=== PATIENT | female | born 1970 | race Caucasian/White ===

== ENCOUNTER 2018-04-10 07:04 | Observation (INO) ==
--- NOTE | 2018-03-21 09:46 | Anesthesiology Consultation ---
Date of Service March 21, 2018 Assessment & Plan (1) Encounter for pre-operative examination: Plan: CHECK TEST AM DOS Chart Review Chart Review: Acceptable Risk for Surgery and Patient seen in Pre Admission Testing Teaching & Discussion Instructed NPO after midnight before surgery, except medications with 15 cc of water. Medication instructions provided according to the PAT guidelines. History Surgery Operation Date: 04/10/18 08:50 Proposed Procedures p Laparoscopic Cholecystectomy; - J Carlos Garcias MD, FACS s Laparoscopic Appendectomy - J Carlos Garcias MD, FACS Height/Weight Height: 5 ft 5 in Weight: 61.8 kg Allergies Allergy/AdvReac Type Severity Reaction Status Date / Time No Known Drug Allergies Allergy Unknown . Verified 03/20/18 12:14 Medications Home Medications Medication Instructions Recorded Confirmed Last Taken alprazolam 0.25 mg PO BID PRN 03/20/18 03/20/18 Unknown ascorbic acid (vitamin C) [Vitamin 1 g PO DAILY PRN 03/20/18 03/20/18 Unknown C] biotin 1 mg PO DAILY PRN 03/20/18 03/20/18 Unknown cetirizine [Zyrtec] 10 mg PO QAM 03/20/18 03/20/18 Unknown diphenhydramine HCl [Benadryl] 25 mg PO HS PRN 03/20/18 03/20/18 Unknown docusate sodium [Stool Softener] 100 mg PO DAILY PRN 03/20/18 03/20/18 Unknown ginkgo biloba 40 mg PO DAILY PRN 03/20/18 03/20/18 Unknown indapamide 1.25 mg PO QAM 03/20/18 03/20/18 Unknown iron 18 mg PO DAILY PRN 03/20/18 03/20/18 Unknown lactobacillus combination no.4 3,000 mmu cells PO QAM 03/20/18 03/20/18 Unknown [Probiotic] pantoprazole 40 mg PO QAM 03/20/18 03/20/18 Unknown ranitidine HCl 150 mg PO HS PRN 03/20/18 03/20/18 Unknown vitamin B complex 1 cap PO DAILY PRN 03/20/18 03/20/18 Unknown Past Medical History Medical History Anxiety Chronic back pain HX OF CERVICAL THORACID BULGING DISC, PT HAS CHRONIC PAIN, DOES NOT IMPACT ADL' S. GERD (gastroesophageal reflux disease) Hypertension Kidney stones Past Surgical History Surgical History History of dilatation and curettage AB History of esophagogastroduodenoscopy (EGD) History of wisdom tooth extraction Past Anesthesia History No Hx of Anesthesia Complications and No Family Hx of Anesthesia Complications History of PONV No Motion Sickness Screening History of Motion Sickness: No Social History Smoking Status: Current every day smoker tobacco type: cigarettes Smoking cigarettes per day: HX OF 1PPD, X10 +YEARS Do You Dip or Chew Tobacco: No Hx Alcohol Use: Yes Alcohol type: other alcohol intake frequency: holidays/special occasions only Alcohol Intake Frequency Comment: OCC. SOCIAL DRINK Hx Substance Use: No substance use type: does not use Exercise / Class Metabolic Activity II 4-5 Yardwork/Stairs/Walk up hill (no CP or SOB with stairs, pt is EMT, active at work) Review of Systems Pt denies any recent chest pain, shortness of breath, cough, fever or URI. + palpitations, no assc chest pain. Occ epigastric pain 2/2 gallbladder/GERD, relieved with antacid. Physical Exam Vital Signs BP: 123/82 P: 81 SPO2: 99% RA T: 98.4 F R: 16 ENMT Mouth: + chipped teeth (back R molar); no loose teeth Thyromental Distance: < 3.5 Finger Breadths (3) Mallampati Class: II Neck normal visual inspection; neck extension not limited Respiratory normal respiratory effort Auscultation: lungs clear to auscultation bilaterally Cardiovascular Rate/Rhythm: regular rate and regular rhythm Heart Sounds: no murmur Vessels: no carotid bruit Testing Electrocardiogram Date: 03/21/18 Findings: + NSR @ (75) Echocardiogram Date: 01/29/16 EF: 60-65% Normal left ventricular size and systolic function. No regional wall motion abnormalities. No left ventricular hypertrophy. No significant diastolic dysfunction. No significant valvular abnormalities. Technically difficult study , enhanced with IV Definity. Stress Test Date: 01/27/18 Type: exercise Negative stress echo for ischemia at 88% MPHR. Negative exercise ECG for ischemia at 88% MPHR. Appropriate blood pressure response to exercise. No chest pain. No arrhythmia. Fair exercise tolerance. Technically difficult study, enhanced with IV Definity. Laboratory Results 03/21/18 09:58 03/21/18 09:58
--- NOTE | 2018-03-21 09:55 | PAT Medication Instructions ---
Medication Instructions Date of Service March 21, 2018 Home Medications alprazolam 0.25 mg PO BID PRN ascorbic acid (vitamin C) 1 g PO DAILY PRN biotin 1 mg PO DAILY PRN cetirizine [Zyrtec] 10 mg PO QAM diphenhydramine HCl [Benadryl] 25 mg PO HS PRN docusate sodium [Stool Softener] 100 mg PO DAILY PRN ginkgo biloba 40 mg PO DAILY PRN indapamide 1.25 mg PO QAM iron 18 mg PO DAILY PRN lactobacillus [Probiotic] 3,000 mmu cells PO QAM pantoprazole 40 mg PO QAM ranitidine HCl 150 mg PO HS PRN vitamin B complex 1 cap PO DAILY PRN STOP taking 2 weeks before surgery ginkgo biloba 40 mg PO DAILY PRN DO NOT take the morning of surgery ascorbic acid (vitamin C) 1 g PO DAILY PRN biotin 1 mg PO DAILY PRN cetirizine [Zyrtec] 10 mg PO QAM docusate sodium [Stool Softener] 100 mg PO DAILY PRN indapamide 1.25 mg PO QAM iron 18 mg PO DAILY PRN lactobacillus [Probiotic] 3,000 mmu cells PO QAM vitamin B complex 1 cap PO DAILY PRN Take morning of surgery With a small sip of water, OTHERWISE NOTHING TO EAT OR DRINK AFTER MIDNIGHT: alprazolam 0.25 mg PO BID PRN (if needed) pantoprazole 40 mg PO QAM Take evening before surgery alprazolam 0.25 mg PO BID PRN (if needed) diphenhydramine HCl [Benadryl] 25 mg PO HS PRN (if needed) docusate sodium [Stool Softener] 100 mg PO DAILY PRN (if needed) ranitidine HCl 150 mg PO HS PRN (if needed) Other Notes If you have any questions please call us at [phone] or [phone] or [phone] or [phone]
[2018-03-21 10:57] LABS: Basophils # (auto) 0.03 K/uL (0-0.2); Basophils % (auto) 0.5 %; Eosinophils % (auto) 3.4 %; Hemoglobin 14.1 g/dL (12.0-16.0); Immature Granulocytes # (auto) 0.01 K/uL (0.00-0.02); Immature Granulocytes % (auto) 0.2 %; Lymphocytes # (auto) 2.52 K/uL (1.2-3.4); Lymphocytes % (auto) 42.2 %; Mean Corpuscular Hgb Conc 33.6 g/dL (32-36); Mean Corpuscular Volume 98.4 fL (80-100); Mean Platelet Volume 9.6 fL (7.4-10.4); Monocytes # (auto) 0.59 K/uL (0.11-0.59); Monocytes % (auto) 9.9 %; Neutrophils # (auto) 2.62 K/uL (1.4-6.5); Neutrophils % (auto) 43.8 %; Platelet Count 295 K/uL (130-400); RDW Coefficient of Variation 13.8 % (11.5-14.5); RDW Standard Deviation 48.6 fL (36.4-46.3); Red Blood Count 4.27 M/uL (4.2-5.4); White Blood Count 5.97 K/uL (4.8-10.8)
[2018-03-21 11:15] LABS: Alanine Aminotransferase 21 U/L (12-78); Albumin Level 3.6 gm/dl (3.4-5.0); Aspartate Aminotransferase 14 U/L (15-37); Bilirubin Direct < 0.1 mg/dl (0-0.2); Blood Urea Nitrogen 10 mg/dl (7-18); Calcium 8.9 mg/dl (8.5-10.1); Carbon Dioxide 29 mmol/L (21-32); Chloride 104 mmol/L (98-107); Creatinine Clr Calc Pharmacy 75.7 ml/min; Est GFR (African American) 99.6; Glucose 105 mg/dl (70-99); Potassium 3.6 mmol/L (3.5-5.1); Sodium 139 mmol/L (136-145)
[2018-03-21 11:18] LABS: Alkaline Phosphatase 65 U/L (45-117); Bilirubin,Total 0.3 mg/dl (0.1-1)
[~2018-04-10 07:04] MED LIST: LR 15ML/HR IV SCH; cefOXitin 2,000 MG in DEXTROSE 5% 50 ML IV SCH; cefTRIAXone SODIUM 2,000 MG in DEXTROSE 5% 50 ML IV SCH
[2018-04-10] MEDS ORDERED: PROMETHAZINE HCL 12.5 MG in SODIUM CHLORIDE 0.9% 50 ML IV PRN ×2 (08:06→11:09)
[2018-04-10] MEDS ORDERED: ONDANSETRON INJ 2 MG/ML 2 ML VIAL IV PRN ×2 (08:06→11:09)
[2018-04-10] MEDS ORDERED: FLUMAZENIL 0.1 MG/1 ML 10 ML VIAL IV PRN (08:06)
[2018-04-10] MEDS ORDERED: LABETALOL HCL IV 5 MG/ML 20ML IV PRN (08:06)
[2018-04-10] MEDS ORDERED: ePHEDrine sulfate 50 MG/ML AMP IV PRN (08:06)
[2018-04-10] MEDS ORDERED: ATROPINE SULFATE 0.1 MG/ML 10ML SYR IV PRN (08:06)
[2018-04-10] MEDS ORDERED: NALOXONE HCL 0.4 MG/1 ML VIAL/CARP IV PRN (08:06)
--- NOTE | 2018-04-10 08:14 | History & Physical Bridge Note ---
Date of Service April 10, 2018 History & Physical Bridge Note I have examined the patient, reviewed the History & Physical and in the interval since the performance of the History & Physical I have noted the following changes of clinical significance: no changes noted
[2018-04-10] MEDS ORDERED: fentaNYL citrate 100 MCG/2 ML VIAL ONE (08:22)
[2018-04-10] MEDS ORDERED: LIDOCAINE HCL 2% 2 ML VIAL/AMP(20MG/ML) INFIL ONE (08:22)
[2018-04-10] MEDS ORDERED: PROPOFOL IV EMULSION 10 MG/ML 20 ML VIAL IV ONE (08:22)
[2018-04-10] MEDS ORDERED: MIDAZOLAM HCL 1 MG/ML 2ML VIAL ONE (08:22)
[2018-04-10] MEDS ORDERED: ROCURONIUM BROMIDE 10 MG/ML 5 ML VIAL ONE (08:22)
[2018-04-10] MEDS ORDERED: BUPIVACAINE 0.5 % 5 MG/1 ML MPF 30ML VIAL ONE (08:36)
[2018-04-10] MEDS ORDERED: ONDANSETRON INJ 2 MG/ML 2 ML VIAL ONE (09:45)
[2018-04-10] MEDS ORDERED: NEOSTIGMINE METHYLSULFATE 5 MG/5 ML SYR ONE (09:45)
[2018-04-10] MEDS ORDERED: GLYCOPYRROLATE 0.2 MG/ML VIAL ONE (09:45)
[2018-04-10] MEDS ORDERED: DEXAMETHASONE SOD INJ 4 MG/ML VIAL ONE (09:45)
--- NOTE | 2018-04-10 09:47 | Operative Report ---
Post Operative Report Pre & Post Diagnosis Operation Date: 04/10/18 08:50 Pre-Op Diagnosis: Cholelithiasis; Disorder of Appendix Post-Op Diagnosis: Cholelithiasis; Disorder of Appendix same with chronic cholecystitis and adhesions Procedure Operation Date: 04/10/18 08:50 Actual Procedures p Laparoscopic Cholecystectomy;(Not Applicable) - J Carlos Garcias MD, FACS s Laparoscopic Appendectomy(Not Applicable) - J Carlos Garcias MD, FACS same Surgeon J Carlos Garcias MD, FACS Emulsification Operator Dejuan Chacon Estimated Blood Loss 10 Findings Consistent with Post-Op Diagnosis Specimens gallbladder and appendix I attest to the content of the Intraoperative Record and any orders documented therein. Any exceptions are noted below.
[2018-04-10] MEDS ORDERED: ACETAMINOPHEN 1,000 MG/100 ML VIAL IV ONE (10:00)
[2018-04-10] MEDS ORDERED: ePHEDrine sulfate 50 MG/ML SYR ONE (10:08)
[2018-04-10] MEDS: fentaNYL citrate 100 MCG/2 ML VIAL IV PRN ×2 (10:27→10:32)
--- NOTE | 2018-04-10 10:28 | Operative Report ---
DATE OF OPERATION: 04/10/2018 NAME OF OPERATION: Laparoscopic cholecystectomy and laparoscopic appendectomy. PREOPERATIVE DIAGNOSES: Biliary colic and appendolith. POSTOPERATIVE DIAGNOSES: Biliary colic and appendolith with chronic cholecystitis and adhesions. STAFF SURGEON: J Carlos Garcias MD HOSPICE OFFICE COORDINATOR: Reji Chacon PA-C ANESTHESIA: General. DESCRIPTION OF PROCEDURE: The patient was brought in the operating room and placed on the operating table in supine position. Pneumatic stockings, Moreno catheter and orogastric tube were placed. Her abdomen was prepped and draped in usual fashion. 0.5% plain Marcaine was used to anesthetize all incisions. Incision was made above the umbilicus, carrying dissection down to the fascia, placing a Veress needle producing pneumoperitoneum. A 12 mm port was placed at this level, and then under visualization, three 5 mm ports were placed, 1 cephalad and 2 laterally. Later in the procedure for the appendectomy, we placed a left lower quadrant 5 mm port. The gallbladder was observed and retracted. It was decompressed. There was a stone in the neck of the gallbladder in the proximal cystic duct. The cystic duct was dissected free. We were also able to identify the common bile duct and common hepatic duct artery. Cystic duct was clipped and transected with the stone in the gallbladder. The cystic artery was identified, clipped and transected and the gallbladder dissected away from the liver bed and placed in an Endobag. There was minimal bleeding, after appropriate hemostasis and irrigation, the Endobag was removed through the umbilical site. At this point, the attention was toward the right lower quadrant. The cecum was reflected. The appendix was retracted. It did appear to be relatively normal size. The base of the appendix was dissected free and then transected using an Endo-GURVINDER stapler. The mesoappendix was then identified and then transected using the Endo-GURVINDER stapler. The appendix was placed into the Endobag and then removed through the umbilical site. After appropriate irrigation and hemostasis, all ports were removed. The fascia at the umbilicus closed using interrupted 0 Vicryl suture. Skin reapproximated using subcuticular 4-0 Monocryl and Dermabond. The patient was transferred to recovery room in stable condition. My preschool teacher assistant helped with prepping, draping, removal of the gallbladder and the appendix and closure of the wounds. I attest to the content of the Intraoperative Record and any orders documented therein. Any exception s are noted below.
--- NOTE | 2018-04-10 10:45 | Anesthesiology Progress Note ---
Date of Service April 10, 2018 Anesthesia Post Procedure Vital Signs Vital Signs: Temp Pulse Pulse Resp BP BP Pulse Ox 04/10/18 10:40 36.6 C 49 L 15 144/68 H 100 04/10/18 10:30 55 L 15 146/76 H 100 04/10/18 10:20 57 L 19 129/68 100 04/10/18 10:10 47 L 14 116/78 100 04/10/18 10:03 36.6 C 59 L 14 151/69 H 100 04/10/18 07:42 36.7 C 65 18 117/72 96 Pain Intensity Upper Abdomen: Pain Intensity: 4 Notes Mental Status: alert / awake / arousable Patient Amnestic to Procedure: Yes Nausea / Vomiting: adequately controlled Pain: adequately controlled Airway Patency, RR, SpO2: stable & adequate BP & HR: stable & adequate Hydration State: stable & adequate Anesthetic Complications: no major complications apparent
[2018-04-10] MEDS ORDERED: ALPRAZolam 0.25 MG TABLET PO PRN (11:09)
[2018-04-10] MEDS ORDERED: HYDROmorphone INJ 0.5 MG/0.5 ML SYR IV PRN (11:09)
[2018-04-10] MEDS ORDERED: HYDROCODONE/ACETAMOPHEN 5/325MG TAB PO PRN (11:09)
[2018-04-10] MEDS: SODIUM CHLORIDE 0.9% 500 ML IV SCH ×2 (16:49→22:00)
[2018-04-10] MEDS: HYDROCODONE/ACETAMOPHEN 5/325MG TAB PO PRN (19:45)
--- NOTE | 2018-04-10 20:31 | Internal Medicine Consult Note ---
Date of Consultation April 10, 2018 Assessment & Plan (1) Abdominal pain: Patient seen postoperatively for medical surveillance. The patient is a complaint of problems at the present time she does not have significant past medical history. Her home medicines are reviewed and the exception of the occasional alprazolam and indapamide most of her medications are over-the- counter or symptom oriented. Appropriate medications have been continued Dr. Garcias has advance her diet and short hospital stay is expected History of Present Illness Attending Physician: J Carlos Garcias MD, [facility] History of Present Illness Patient is seen after status post cholecystectomy and appendectomy she is doing well and having minor sharp stabbing and fleeting abdominal pain which is likely residual from her insufflation from the laparoscopic surgery. She has no other complaints or problems generally has been in good health typically sees Dr. miller Allergies Allergy/AdvReac Type Severity Reaction Status Date / Time No Known Drug Allergies Allergy Unknown . Verified 04/10/18 07:38 Home Medications Home Medications Medication Instructions Recorded Confirmed Type alprazolam 0.25 mg PO BID PRN 03/20/18 04/10/18 History ascorbic acid (vitamin C) [Vitamin 1 g PO DAILY PRN 03/20/18 04/10/18 History C] biotin 1 mg PO DAILY PRN 03/20/18 04/10/18 History cetirizine [Zyrtec] 10 mg PO QAM 03/20/18 04/10/18 History diphenhydramine HCl [Benadryl] 25 mg PO HS PRN 03/20/18 04/10/18 History docusate sodium [Stool Softener] 100 mg PO DAILY PRN 03/20/18 04/10/18 History ginkgo biloba 40 mg PO DAILY PRN 03/20/18 04/10/18 History indapamide 1.25 mg PO QAM 03/20/18 04/10/18 History iron 18 mg PO DAILY PRN 03/20/18 04/10/18 History lactobacillus combination no.4 3,000 mmu cells PO QAM 03/20/18 04/10/18 History [Probiotic] pantoprazole 40 mg PO QAM 03/20/18 04/10/18 History ranitidine HCl 150 mg PO HS PRN 03/20/18 04/10/18 History vitamin B complex 1 cap PO DAILY PRN 03/20/18 04/10/18 History Patient History Medical History Anxiety Chronic back pain HX OF CERVICAL THORACID BULGING DISC, PT HAS CHRONIC PAIN, DOES NOT IMPACT ADL' S. GERD (gastroesophageal reflux disease) Hypertension Kidney stones Surgical History History of dilatation and curettage AB History of esophagogastroduodenoscopy (EGD) History of wisdom tooth extraction Social History Current Living Situation: Spouse Other Information That Helps Us Care for You: No Feels Safe at Home: Yes Safety Concerns: Feels Safe At This Time Smoking Status: Current every day smoker Tobacco Type: cigarettes Cigarettes per Day: HX OF 1PPD, X10 +YEARS Do You Dip or Chew Tobacco: No Hx Alcohol Use: Yes Alcohol type: other Alcohol Intake Frequency: holidays/ special occasions only Hx Substance Use: No Beliefs That Will Affect Care: None Preferred Language: Citizen Of [place] Communication Ability: Effective Supply Requirements Officer Required: No Review of Systems ROS: well nourished well developed. No double vision blurry vision No problems with speech or swallowing No palpitations, chest pain or pressure No Wheezing or breathing issues Patient is having persistent postprandial problems prior to surgery No burning urine urine frequency or changes in color No focal joint pain or muscle pain No skin rashes or oral lesions No unusual bruising or bleeding No focused back pain or numbness or loss of strength No changes in memory or confusion Physical Exam 2 Vital Signs (Past 24 Hours): Last Vital Signs Temp 36.9 C 04/10/18 15:35 Pulse 73 04/10/18 15:35 Resp 16 04/10/18 15:35 BP 127/72 04/10/18 15:35 Pulse Ox 97 04/10/18 15:35 The patient appeared well nourished and normally developed. Vital signs as documented. Head exam is unremarkable. No scleral icterus or corneal arcus noted Neck is without jugular venous distension, thyromegaly, or lymphademopathy Lungs are clear to auscultation and percussion. Cardiac exam reveals Rhythm is regular. First and second heart sounds normal. No murmurs, rubs or gallops. Abdominal exam reveals normal bowel sounds, no masses, no organomegaly no guarding no rigidity fairly soft Extremities are nonedematous and both pedal pulses are normal. Neurologic exam is A&Ox3, no focal deficits, strength is equal bilateral Skin is warm Dry without bruises or lesions
[2018-04-10] MEDS ORDERED: DOCUSATE SODIUM 100 MG CAP PO ONE (22:08)
[2018-04-11] MEDS: HYDROCODONE/ACETAMOPHEN 5/325MG TAB PO PRN ×2 (00:16→04:21)
--- NOTE | 2018-04-11 06:16 | Discharge Summary ---
PRINCIPAL DIAGNOSIS: Chronic cholecystitis and appendolith. PROCEDURES: The patient underwent laparoscopic cholecystectomy and appendectomy. HISTORY OF PRESENT ILLNESS: The patient is a 48-year-old female with a history of biliary colic and gallstones and also a history of a right lower quadrant pain with findings of appendolith. HOSPITAL COURSE: The patient was brought into the hospital on 04/10/2018 where she underwent laparoscopic cholecystectomy and laparoscopic appendectomy, which she tolerated very well, has done well overnight and is felt stable for discharge home today. She did have some mild discomfort from the CO2 gas used for pneumoperitoneum. We will follow her in the clinic within 1-2 weeks.
[2018-04-11] MEDS ORDERED: NICOTINE 21 MG/24 HR TDSY TD SCH (09:00)
== END 2018-04-11 07:33 | disposition home or self-care (01) ==
LOC: 3W 07:04 → ASU 07:04